=== PATIENT | male | born 1995 | race African-American/Black ===

== ENCOUNTER 2017-02-27 15:45 | Emergency (ER) | payer OTHER ==
[~2017-02-27] VITALS: Ht 182.9 cm; Wt 83.0 kg
--- NOTE | ~2017-02-27 | EKG ---
[address] [place] [address] ELECTROCARDIOGRAM REPORT Name: BEE MASTERSON Room #: [facility] KARTHIK Avendano#: [id number] Admission: 02/27/17 Attend Phys: Discharge: 02/27/17 Date of : [birth year] Report #: [id number] THIS REPORT FOR: //name// [facility] ED Test Date: 2017-02-27 Test Time: 16:32:13 Pat Name: BEE MASTERSON Department: Room: Gender: M Material Manager: [id number] : 1995 Requested By: Gurpreet Richardson Order Number: [id number] MD: Irvin Cummings Measurements Intervals [place] Rate: 50 P: 67 LA: 191 QRS: 44 QRSD: 100 T: 18 QT: 419 QTc: 382 Interpretive Statements Sinus rhythm ST elev, probable normal early repol pattern No previous ECG available for comparison Electronically Signed On 03-02-2017 8:31:48 CDT by Irvin Cummings [email or web address] <ELECTRONICALLY SIGNED> By: Irvin Cummings MD, [facility] 03/02/17 0831 1632 1632 Irvin Cummings MD, FAC /EPI
[2017-02-27 16:21] LABS: URINE BILIRUBIN NEGATIVE (Negative); URINE BLOOD NEGATIVE (Negative); URINE COLOR YELLOW; URINE GLUCOSE-RANDOM* NEGATIVE (Negative); URINE KETONES NEGATIVE (Negative); URINE LEUKOCYTES-REFLEX TRACE (Negative); URINE PROTEIN (DIPSTICK) TRACE (Negative)
[2017-02-27 17:12] LABS: ABSOLUTE NEUTROPHILS 4.6 thou/uL (1.4-8.2); BASOPHILS 0.1 % (0.0-2.0); EOSINOPHILS 0.8 % (0.0-3.0); HEMATOCRIT 40.3 % (42.0-52.0); LYMPHOCYTES 28.6 % (24.0-44.0); MANUAL DIFF NO; MCHC 34.9 g/dL (28.0-37.0); MCV 91.9 fL (80.0-100.0); MONOCYTES 10.7 % (1.0-8.0); PLATELET COUNT 208 thou/uL (150-400); POLYS 59.8 % (36.0-66.0); RBC 4.38 mil/uL (4.50-6.00); RDW 13.2 % (10.5-14.5); WBC 7.6 thou/uL (4.0-11.0)
[2017-02-27 17:19] LABS: CALCIUM 9.2 mg/dL (8.5-10.1); CREATININE 1.2 mg/dL (0.7-1.3); POTASSIUM 4.3 mmol/L (3.5-5.1)
[2017-02-27] MEDS ORDERED: DOXYCYCLINE 10100 MG PO (17:46)
[2017-02-27] MEDS ORDERED: MOBIC15 MG PO (17:54)
[2017-02-27 18:19] VITALS: BP 109/62
== END 2017-02-27 18:14 | disposition home or self-care (01) ==
LOC: ER 15:45
PROVIDERS: Physician Assistant
DX: N45.3 Epididymo-orchitis (principal); R55 Syncope and collapse; F10.99 Alcohol use, unspecified with unspecified alcohol-induced disorder; Z88.1 Allergy status to other antibiotic agents